=== PATIENT | male | born 1980 | race Caucasian/White ===

== ENCOUNTER 2018-12-02 13:21 | Inpatient (IN) | payer OTHER ==
[2018-12-02 14:58] VITALS: BMI 17.9
--- NOTE | 2018-12-02 16:46 | HP ---
CIWA Score Nausea/Vomitin-Mild Nausea/No Vomiting Muscle Tremors: 3 Anxiety: 3 Agitation: 2 Paroxysmal Sweats: 1-Minimal Palms Moist Orientation: 0-Oriented Tacttile Disturbances: 0-None Auditory Disturbances: 0-None Visual Disturbances: 0-None Headache: 2-Mild CIWA-Ar Total Score: 12 - Admission Criteria OASAS Guidelines: Admission for Medically Managed Detox: Requires at least one of the followin. CIWA greater than 12 2. Seizures within the past 24 hours 3. Delirium tremens within the past 24 hours 4. Hallucinations within the past 24 hours 5. Acute intervention needed for co occurring medical disorder 6. Acute intervention needed for co occurring psychiatric disorder 7. Severe withdrawal that cannot be handled at a lower level of care (continued vomiting, continued diarrhea, abnormal vital signs) requiring intravenous medication and/or fluids 8. Admission ROS S - [facility] Chief Complaint: here for detox from alcohol, on MAT methadone Allergies/Adverse Reactions: Allergies Allergy/AdvReac Type Severity Reaction Status Date / Time No Known Allergies Allergy Verified 12/02/18 14:47 History of Present Illness: 38 yo with no medical problems, in a methadone program in [place], referred here by program for detox. Pt states last drink was this morning. 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 Says he does not like drinking and would like to stop. Has not gone to AA groups or discussed treatment with his counselors. Lives with his parents. Has no PCP. alcohol- 6 beers/day and 1/2 pint of vodka, no seizures no DT's heroin- 2 bags/IV, no OD, has narcan kit at home cocaine- occ Benzo-occ DUR- no controlled substances - Ebola screening Have you traveled outside of the country in the last 21 days: No Have you had contact with anyone from an Ebola affected area: No Do you have a fever: No - Review of Systems Constitutional: No Symptoms Reported EENT: reports: No Symptoms Reported Respiratory: reports: No Symptoms reported Cardiac: reports: No Symptoms Reported GI: reports: No Symptoms Reported : reports: No Symptoms Reported Musculoskeletal: reports: No Symptoms Reported Integumentary: reports: No Symptoms Reported Neuro: reports: No Symptoms reported Endocrine: reports: No Symptoms Reported Hematology: reports: No Symptoms Reported Psychiatric: reports: No Sypmtoms Reported Other Systems: Reviewed and Negative Patient History - Patient Medical History Hx Human Immunodeficiency Virus (HIV): No Hx Hepatitis C: No - PPD History Documented Results: Negative w/o proof - Smoking Cessation Smoking history: Current every day smoker Have you smoked in the past 12 months: Yes Aproximately how many cigarettes per day: 10 Hx Chewing Tobacco Use: No Initiated information on smoking cessation: Yes 'Breaking Loose' booklet given: 12/02/18 - Substance & Tx. History Substance Use Type: Alcohol, Cocaine, Heroin - Substances abused Alcohol Substance route: Oral Frequency: Daily Amount used: 6 beers & 1 pint vodka Age of first use: 36 Date of last use: 12/02/18 Benzodiazepine (Klonopin) Substance route: Oral Frequency: 1-3 times last 30 days Amount used: 0.5mg Age of first use: 38 Date of last use: 11/30/18 Family Disease History - Family Disease History Family History: Denies Admission Physical Exam [facility] - Vital Signs Vital Signs: Vital Signs - 24 hr 12/02/18 14:47 Temperature 98.9 F Pulse Rate 75 Respiratory 16 Rate Blood Pressure 99/64 - Physical General Appearance: Yes: Within Normal Limits, Mild Distress, Thin HEENTM: Yes: Within Normal Limits, EOMI, Hearing grossly Normal, Normal ENT Inspection, GEETA Respiratory: Yes: Within Normal Limits, Chest Non-Tender, Lungs Clear Neck: Yes: Within Normal Limits Cardiology: Yes: Within Normal Limits, Regular Rhythm Abdominal: Yes: Within Normal Limits, Normal Bowel Sounds, Non Tender, Flat Genitourinary: Yes: Within Normal Limits Back: Yes: Within Normal Limits Musculoskeletal: Yes: Within Normal Limits Extremities: Yes: Within Normal Limits Neurological: Yes: Within Normal Limits Integumentary: Yes: Within Normal Limits Lymphatic: Yes: Within Normal Limits - Diagnostic (1) Alcohol use disorder Current Visit: Yes Status: Acute (2) Cocaine use disorder Current Visit: Yes Status: Acute (3) Methadone maintenance therapy patient Current Visit: Yes Status: Acute (4) Opioid use disorder Current Visit: Yes Status: Acute (5) Tobacco dependence Current Visit: Yes Status: Acute Breathalyzer - Breathalyzer Breathalyzer: 0 Urine Drug Screen - Test Device Lot number: [id number] Expiration date: 04/30/21 - Control Is test valid?: Yes - Results Drug screen NEGATIVE: No Urine drug screen results: GRISELDA-Cocaine, FEN-Fentanyl, MOP-Opiates, OXY-Oxycodone , MTD-Methadone Inpatient Rehab Admission - Rehab Decision to Admit Inpatient rehab admission?: No
[2018-12-02] MEDS ORDERED: hydrOXYzine PAMOATE 25 MG CAPSULE (FP) PO PRN (16:49)
[2018-12-02] MEDS ORDERED: ONDANSETRON *ODT* 4 MG TABLET SL PRN (16:49)
[2018-12-02] MEDS ORDERED: ACETAMINOPHEN 325 MG TABLET (FP) PO PRN ×2 (16:49)
[2018-12-02] MEDS ORDERED: MAGNESIUM CITRATE 300 ML BOTTLE PO PRN (16:49)
[2018-12-02] MEDS ORDERED: BISMUTH SUBSALICYLATE 524 MG/30 ML UD PO PRN (16:49)
[2018-12-02] MEDS ORDERED: MELATONIN 5 MG TABLETS PO PRN (16:49)
[2018-12-02] MEDS ORDERED: chlordiazePOXIDE HCL 25 MG CAPSULE PO PRN (16:49)
[2018-12-02] MEDS ORDERED: MENTHOL/PHENOL 1 EACH UD MM PRN (16:49)
[2018-12-02] MEDS ORDERED: METHOCARBAMOL 500 MG TABLET PO PRN (16:49)
[2018-12-02] MEDS ORDERED: MAGNESIUM HYDROX 2400MG/30ML ORAL SUSPENSION 30 ML CUP PO PRN (16:49)
[2018-12-02] MEDS ORDERED: IBUPROFEN 400 MG TABLET (FP) PO PRN (16:49)
--- NOTE | 2018-12-02 17:58 | PN ---
[facility] Progress Note Note: Patient EKG shoes prolonged QT interval. Will d/c vistaril.
[2018-12-02] MEDS: chlordiazePOXIDE HCL 25 MG CAPSULE PO SCH (22:20)
[2018-12-02] MEDS: THIAMINE HCL 100 MG TABLET (FP) PO SCH (22:20)
[2018-12-02] MEDS: MAG HYDROX/AL HYDROX/SIMETH 30 ML UNIT-DOSE CUP PO PRN (22:21)
[2018-12-03] MEDS: chlordiazePOXIDE HCL 25 MG CAPSULE PO SCH ×4 (05:10→23:34)
[2018-12-03] MEDS ORDERED: METHADONE HCL 10 MG TABLET PO ONE (09:42)
[2018-12-03 09:55] LABS: ALBUMIN 3.2 g/dl (3.4-5.0); BILIRUBIN,TOTAL 0.4 mg/dL (0.2-1); BLOOD UREA NITROGEN 9.7 mg/dL (7-18); CALCIUM 8.8 mg/dL (8.5-10.1); CREATININE 0.8 mg/dL (0.55-1.3); POTASSIUM 4.1 mmol/L (3.5-5.1); TOT PROT 6.5 g/dl (6.4-8.2)
[2018-12-03 10:06] LABS: HEMATOCRIT 37.9 % (35.4-49); HEMOGLOBIN 12.7 GM/dL (11.7-16.9); MCH 29.3 pg (25.7-33.7); MCHC 33.5 g/dl (32.0-35.9); MEAN CELL VOLUME 87.4 fl (80-96); MEAN PLT VOLUME 9.6 fl (7.5-11.1); PLATELET COUNT 140 K/MM3 (134-434); RBC 4.33 M/mm3 (4.00-5.60); RDW 13.4 % (11.9-15.9); WHITE BLOOD COUNT 4.1 K/mm3 (4.0-10.0)
[2018-12-03] MEDS ORDERED: METHADONE 80 MG, METHADONE 30 MG, METHADONE 5 MG PO ONE (10:30)
[2018-12-03] MEDS ORDERED: METHADONE HCL 5 MG TABLET ONE (10:35)
[2018-12-03] MEDS ORDERED: METHADONE HCL 10 MG TABLET ONE (10:35)
[2018-12-03] MEDS: PRENATAL VITAMINS W/ FOLIC ACID TABLET (FP) PO SCH (10:36)
[2018-12-03] MEDS ORDERED: METHADONE HCL 40 MG DISPERSABLE TABLET ONE (10:36)
[2018-12-03] MEDS: NICOTINE 14 MG/24 HOURS TOPICAL PATCH TD SCH (10:37)
--- NOTE | 2018-12-03 13:04 | PN ---
[facility] CIWA - CIWA Score Nausea/Vomitin-No Nausea/No Vomiting Muscle Tremors: 3 Anxiety: 3 Agitation: 3 Paroxysmal Sweats: 2 Orientation: 0-Oriented Tacttile Disturbances: 0-None Auditory Disturbances: 0-None Visual Disturbances: 0-None Headache: 0-None Present CIWA-Ar Total Score: 11 S Progress Note (SOAP) Subjective: nausea restless sweats shakes Objective: 12/03/18 13:03 Vital Signs Temperature 98.2 F 12/03/18 09:32 Pulse Rate 82 12/03/18 09:32 Respiratory Rate 18 12/03/18 09:32 Blood Pressure 102/58 L 12/03/18 09:32 O2 Sat by Pulse Oximetry (%) Laboratory Tests 12/03/18 12/03/18 12/03/18 08:00 08:00 08:00 WBC 4.1 RBC 4.33 Hgb 12.7 Hct 37.9 MCV 87.4 MCH 29.3 MCHC 33.5 RDW 13.4 Plt Count 140 MPV 9.6 Sodium 142 Potassium 4.1 Chloride 106 Carbon Dioxide 32 Anion Gap 4 L BUN 9.7 Creatinine 0.8 Est GFR (CKD-EPI)AfAm 132.27 Est GFR (CKD-EPI)NonAf 114.12 Random Glucose 83 Calcium 8.8 Total Bilirubin 0.4 AST 39 H ALT 55 Alkaline Phosphatase 62 Total Protein 6.5 Albumin 3.2 L RPR Titer Nonreactive labs noted aaox3 ambulating no acute distress Assessment: 12/03/18 13:03 withdrawal sx Plan: continue detox increase fluids zofran sl prn
--- NOTE | 2018-12-03 15:22 | EKG ---
Test Reason : Blood Pressure : / mmHG Vent. Rate : 060 BPM Atrial Rate : 060 BPM P-R Int : 148 ms QRS Dur : 100 ms QT Int : 482 ms P-R-T Axes : -16 071 073 degrees QTc Int : 482 ms NORMAL SINUS RHYTHM WITH SINUS ARRHYTHMIA PROLONGED QT ABNORMAL ECG NO PREVIOUS ECGS AVAILABLE Confirmed by MD Edson, Trey ([id number]) on 12/03/2018 3:21:39 PM Referred By: AMANDA RILEY Confirmed By:Trey Sandhu MD
[2018-12-03] MEDS: ONDANSETRON *ODT* 4 MG TABLET SL PRN (15:46)
[2018-12-03] MEDS: MAG HYDROX/AL HYDROX/SIMETH 30 ML UNIT-DOSE CUP PO PRN (22:26)
[2018-12-03] MEDS: THIAMINE HCL 100 MG TABLET (FP) PO SCH (23:33)
[2018-12-04] MEDS ORDERED: METHADONE HCL 10 MG TABLET ONE (05:10)
[2018-12-04] MEDS ORDERED: METHADONE HCL 5 MG TABLET ONE (05:11)
[2018-12-04] MEDS ORDERED: METHADONE HCL 40 MG DISPERSABLE TABLET ONE (05:11)
[2018-12-04] MEDS: ONDANSETRON *ODT* 4 MG TABLET SL PRN ×2 (05:41→20:46)
[2018-12-04] MEDS: METHADONE 80 MG, METHADONE 30 MG, METHADONE 5 MG PO SCH (05:42)
[2018-12-04] MEDS: chlordiazePOXIDE HCL 25 MG CAPSULE PO SCH ×4 (05:43→22:27)
[2018-12-04] MEDS ORDERED: METHADONE HCL 40 MG DISPERSABLE TABLET PO SCH (06:00)
[2018-12-04] MEDS: NICOTINE 14 MG/24 HOURS TOPICAL PATCH TD SCH (10:48)
[2018-12-04] MEDS: PRENATAL VITAMINS W/ FOLIC ACID TABLET (FP) PO SCH (10:48)
[2018-12-04] MEDS ORDERED: COLLOIDAL OATMEAL 1 BAR EACH TP PRN (13:40)
[2018-12-04] MEDS ORDERED: hydrOXYzine HCL 25 MG TABLET (FP) PO PRN (13:40)
[2018-12-04] MEDS ORDERED: AMMONIUM LACTATE 12% LOTION 225 GM BOTTLE TP PRN (13:41)
--- NOTE | 2018-12-04 16:05 | PN ---
[facility] CIWA - CIWA Score Nausea/Vomitin-Mild Nausea/No Vomiting Muscle Tremors: 3 Anxiety: 3 Agitation: 3 Paroxysmal Sweats: 3 Orientation: 0-Oriented Tacttile Disturbances: 0-None Auditory Disturbances: 0-None Visual Disturbances: 0-None Headache: 0-None Present CIWA-Ar Total Score: 13 S Progress Note (SOAP) Subjective: Stomachache, interrupted sleep, itching upper trunk and extremities (no rash noted) stated he's probably allergic to the bed linens or laundry detergent that washes bed linens. Patient informed that crack/cocaine can also cause itching/crawling sensation and he admitted to using crack sometimes but not recently. Objective: 12/04/18 16:02 Last Vital Signs Temp Pulse Resp BP Pulse Ox 97.1 F L 69 16 107/56 L 12/04/18 13:37 12/04/18 13:37 12/04/18 13:37 12/04/18 13:37 Laboratory Tests 12/03/18 12/03/18 12/03/18 08:00 08:00 08:00 WBC 4.1 RBC 4.33 Hgb 12.7 Hct 37.9 MCV 87.4 MCH 29.3 MCHC 33.5 RDW 13.4 Plt Count 140 MPV 9.6 Sodium 142 Potassium 4.1 Chloride 106 Carbon Dioxide 32 Anion Gap 4 L BUN 9.7 Creatinine 0.8 Est GFR (CKD-EPI)AfAm 132.27 Est GFR (CKD-EPI)NonAf 114.12 Random Glucose 83 Calcium 8.8 Total Bilirubin 0.4 AST 39 H ALT 55 Alkaline Phosphatase 62 Total Protein 6.5 Albumin 3.2 L RPR Titer Nonreactive Labs reviewed: albumin 3.2 (low) Assessment: 12/04/18 16:02 Withdrawal sxs Noted with hypoalbuminemia Plan: Continue detox Encouraged PO water intake Hypoalbuminemia: ensure TID Pruritis: hydroxyzine 50mg PO q6hr prn (changed to benadryl PO prn due to prolonged QTc as per chart), aveeno soap daily prn, lac hydrin lotion bid
[2018-12-04] MEDS ORDERED: diphenhydrAMINE HCL 25 MG CAPSULE (FP) PO PRN (20:00)
[2018-12-04] MEDS: MAG HYDROX/AL HYDROX/SIMETH 30 ML UNIT-DOSE CUP PO PRN (22:29)
[2018-12-04] MEDS: THIAMINE HCL 100 MG TABLET (FP) PO SCH (22:51)
[2018-12-05] MEDS ORDERED: chlordiazePOXIDE HCL 10 MG CAPSULE PO PRN
[2018-12-05] MEDS: chlordiazePOXIDE HCL 10 MG CAPSULE PO SCH ×4 (05:24→22:13)
[2018-12-05] MEDS ORDERED: METHADONE HCL 5 MG TABLET ONE (05:25)
[2018-12-05] MEDS ORDERED: METHADONE HCL 40 MG DISPERSABLE TABLET ONE (05:26)
[2018-12-05] MEDS ORDERED: METHADONE HCL 10 MG TABLET ONE (05:26)
[2018-12-05] MEDS: METHADONE 80 MG, METHADONE 30 MG, METHADONE 5 MG PO SCH (05:27)
[2018-12-05] MEDS: NICOTINE 14 MG/24 HOURS TOPICAL PATCH TD SCH (10:05)
[2018-12-05] MEDS: PRENATAL VITAMINS W/ FOLIC ACID TABLET (FP) PO SCH (10:06)
--- NOTE | 2018-12-05 10:09 | PN ---
[facility] CIWA - CIWA Score Nausea/Vomitin-No Nausea/No Vomiting Muscle Tremors: 2 Anxiety: 2 Agitation: 3 Paroxysmal Sweats: 2 Orientation: 0-Oriented Tacttile Disturbances: 0-None Auditory Disturbances: 0-None Visual Disturbances: 0-None Headache: 0-None Present CIWA-Ar Total Score: 9 S Progress Note (SOAP) Subjective: sweats agitation restless Objective: 12/05/18 10:09 Vital Signs Temperature 98.6 F 12/05/18 09:36 Pulse Rate 66 12/05/18 09:36 Respiratory Rate 18 12/05/18 09:36 Blood Pressure 115/62 12/05/18 09:36 O2 Sat by Pulse Oximetry (%) aaox3 ambulating no acute distress Assessment: 12/05/18 10:09 withdrawal sx Plan: continue detox increase fluids
[2018-12-05] MEDS: MAG HYDROX/AL HYDROX/SIMETH 30 ML UNIT-DOSE CUP PO PRN ×2 (10:31→16:46)
[2018-12-05] MEDS: ONDANSETRON *ODT* 4 MG TABLET SL PRN (17:50)
[2018-12-05] MEDS: THIAMINE HCL 100 MG TABLET (FP) PO SCH (22:13)
[2018-12-06] MEDS ORDERED: METHADONE HCL 40 MG DISPERSABLE TABLET ONE (04:33)
[2018-12-06] MEDS ORDERED: METHADONE HCL 5 MG TABLET ONE (04:33)
[2018-12-06] MEDS ORDERED: METHADONE HCL 10 MG TABLET ONE (04:33)
[2018-12-06] MEDS: METHADONE 80 MG, METHADONE 30 MG, METHADONE 5 MG PO SCH (05:56)
[2018-12-06] MEDS: chlordiazePOXIDE HCL 10 MG CAPSULE PO SCH ×2 (05:58→17:37)
[2018-12-06] MEDS: MAG HYDROX/AL HYDROX/SIMETH 30 ML UNIT-DOSE CUP PO PRN ×3 (07:10→22:12)
[2018-12-06] MEDS ORDERED: chlordiazePOXIDE HCL 10 MG CAPSULE PO ONE (09:29)
[2018-12-06] MEDS: NICOTINE 14 MG/24 HOURS TOPICAL PATCH TD SCH (10:55)
[2018-12-06] MEDS: PRENATAL VITAMINS W/ FOLIC ACID TABLET (FP) PO SCH (10:57)
--- NOTE | 2018-12-06 11:03 | PN ---
[facility] CIWA - CIWA Score Nausea/Vomitin-No Nausea/No Vomiting Muscle Tremors: 1-None Visible, but [place] Anxiety: 1-Mildly Anxious Agitation: 0-Normal Activity Paroxysmal Sweats: 1-Minimal Palms Moist Orientation: 0-Oriented Tacttile Disturbances: 0-None Auditory Disturbances: 0-None Visual Disturbances: 0-None Headache: 0-None Present CIWA-Ar Total Score: 3 [facility] Progress Note (SOAP) Subjective: sweats anxiety Objective: 12/06/18 11:02 Vital Signs Temperature 96.9 F L 12/06/18 09:35 Pulse Rate 70 12/06/18 09:35 Respiratory Rate 18 12/06/18 09:35 Blood Pressure 101/56 L 12/06/18 09:35 O2 Sat by Pulse Oximetry (%) aaox3 ambulating no acute distress Assessment: 12/06/18 11:02 withdrawal sx Plan: continue detox increase fluids d/c in am
[2018-12-06] MEDS: THIAMINE HCL 100 MG TABLET (FP) PO SCH (22:11)
[2018-12-07] MEDS ORDERED: METHADONE HCL 5 MG TABLET ONE (04:33)
[2018-12-07] MEDS ORDERED: METHADONE HCL 40 MG DISPERSABLE TABLET ONE (04:33)
[2018-12-07] MEDS ORDERED: METHADONE HCL 10 MG TABLET ONE (04:33)
[2018-12-07] MEDS ORDERED: chlordiazePOXIDE HCL 10 MG CAPSULE PO ONE (05:00)
[2018-12-07] MEDS: METHADONE 80 MG, METHADONE 30 MG, METHADONE 5 MG PO SCH (05:58)
[2018-12-07 09:36] VITALS: BP 113/64; PULSE 65; TEMP 98
[2018-12-07] MEDS: NICOTINE 14 MG/24 HOURS TOPICAL PATCH TD SCH (10:06)
[2018-12-07] MEDS: PRENATAL VITAMINS W/ FOLIC ACID TABLET (FP) PO SCH (10:06)
[2018-12-07] MEDS: MAG HYDROX/AL HYDROX/SIMETH 30 ML UNIT-DOSE CUP PO PRN (10:07)
--- NOTE | 2018-12-07 11:00 | DS ---
[facility] Detox Discharge Summary Admission Date: 12/02/18 Discharge Date: 12/07/18 - History Present History: Alcohol Dependence, Cocaine Dependence, Opioid Dependence Additional Comments: Pt is medically cleared and is discharge today. Pt has completed his detox protocol and is [facility] [place] [facility] management. Pt is alert and oriented x3 and in no respiratory distress. Pertinent Past History: h/o alcohol, cocaine, and opioid use disorder. - Physical Exam Results Vital Signs: Vital Signs Temperature 98.0 F 12/07/18 09:35 Pulse Rate 65 12/07/18 09:35 Respiratory Rate 18 12/07/18 09:35 Blood Pressure 113/64 12/07/18 09:35 O2 Sat by Pulse Oximetry (%) Vital Signs 12/07/18 12/07/18 12/07/18 03:30 07:27 09:35 Temperature 97.9 F 98.0 F Pulse Rate 78 65 Respiratory 18 18 18 Rate Blood Pressure 94/60 113/64 Lab Results WBC 4.1 K/mm3 (4.0-10.0) 12/03/18 08:00 RBC 4.33 M/mm3 (4.00-5.60) 12/03/18 08:00 Hgb 12.7 GM/dL (11.7-16.9) 12/03/18 08:00 Hct 37.9 % (35.4-49) 12/03/18 08:00 MCV 87.4 fl (80-96) 12/03/18 08:00 MCHC 33.5 g/dl (32.0-35.9) 12/03/18 08:00 RDW 13.4 % (11.9-15.9) 12/03/18 08:00 Plt Count 140 K/MM3 (134-434) 12/03/18 08:00 Sodium 142 mmol/L (136-145) 12/03/18 08:00 Potassium 4.1 mmol/L (3.5-5.1) 12/03/18 08:00 Chloride 106 mmol/L (98-107) 12/03/18 08:00 Carbon Dioxide 32 mmol/L (21-32) 12/03/18 08:00 Anion Gap 4 MMOL/L (8-16) L 12/03/18 08:00 BUN 9.7 mg/dL (7-18) 12/03/18 08:00 Creatinine 0.8 mg/dL (0.55-1.3) 12/03/18 08:00 Random Glucose 83 mg/dL (74-106) 12/03/18 08:00 Calcium 8.8 mg/dL (8.5-10.1) 12/03/18 08:00 Labs noted. Pertinent Admission Physical Exam Findings: withdrawal symptoms. - Treatment Hospital Course: Detox Protocol Followed, Detoxed Safely, Responded well, Discharged Condition Good, Rehab Referral Accepted Patient has Accepted a [facility] - Medication Discharge Medications: Ambulatory Orders Methadone [Dolophine -] 115 mg PO DAILY 12/07/18 - Diagnosis (1) Alcohol use disorder Current Visit: Yes Status: Acute (2) Cocaine use disorder Current Visit: Yes Status: Acute (3) Methadone maintenance therapy patient Current Visit: Yes Status: Acute (4) Opioid use disorder Current Visit: Yes Status: Acute (5) Tobacco dependence Current Visit: Yes Status: Acute - AMA Did Patient Leave Against Medical Advice: No
[2018-12-08] MEDS ORDERED: BISMUTH SUBSALICYLATE 262 MG/15 ML BTL PO PRN (09:42)
== END 2018-12-07 13:06 | disposition other institution (70) | DRG 773 ==
LOC: YASAS 13:21 → Y6N 17:13
PROVIDERS: ADMIT Surgery; ATTEND Surgery
PROC: HZ2ZZZZ Detoxification Services for Substance Abuse Treatment (ICD-10-PCS; principal; 2018-12-02)
DX: F10.230 Alcohol dependence with withdrawal, uncomplicated (principal); F11.20 Opioid dependence, uncomplicated; F14.20 Cocaine dependence, uncomplicated; F17.210 Nicotine dependence, cigarettes, uncomplicated; I45.81 Long QT syndrome; R77.0 Abnormality of albumin
CPT/HCPCS: 36415; 80053; 85027; 86480; 86593; 93005; 93010; Q0162

== ENCOUNTER 2018-12-07 13:26 | Inpatient (IN) | payer OTHER ==
[2018-12-07] MEDS: MAG HYDROX/AL HYDROX/SIMETH 30 ML UNIT-DOSE CUP PO PRN (14:00)
[2018-12-07] MEDS ORDERED: MENTHOL/PHENOL 1 EACH UD MM PRN (14:23)
[2018-12-07] MEDS ORDERED: LOPERAMIDE HCL 2 MG CAPSULE PO PRN (14:23)
[2018-12-07] MEDS ORDERED: guaiFENesin 200 MG/10 ML 10 ML UNIT-DOSE CUPS PO PRN (14:23)
[2018-12-07] MEDS ORDERED: IBUPROFEN 400 MG TABLET (FP) PO PRN (14:23)
[2018-12-07] MEDS ORDERED: MAGNESIUM CITRATE 300 ML BOTTLE PO PRN (14:23)
[2018-12-07] MEDS ORDERED: P-EPHED 60MG/TRIPROLIDI 2.5MG TABLET PO PRN (14:23)
[2018-12-07] MEDS ORDERED: MAGNESIUM HYDROX 2400MG/30ML ORAL SUSPENSION 30 ML CUP PO PRN (14:23)
--- NOTE | 2018-12-07 14:23 | HP ---
[facility] Rehab Assess/Revision - Admission History Admitted to Rehab from: [facility] Date of Admission to Rehab: 12/07/18 - Vital signs Vital Signs: Vital Signs Period Temp Pulse Resp BP Sys/[place] Pulse Ox Last 24 Hr 97.4 F 69 16 85/57 Vital Signs (72 hours) 12/07/18 13:49 Temperature 97.4 F L Pulse Rate 69 Respiratory 16 Rate Blood Pressure 85/57 L - Findings Detox History & Physical reviewed: Yes Concur with findings: Yes Inpatient Rehab Admission - Rehab Decision to Admit Inpatient rehab admission?: Yes - Initial Determination Are CD services needed?: Yes Free of communicable disease: Yes Not in need of hospitalization: Yes - Rehab Admission Criteria Previous failed treatment: Yes Poor recovery environment: Yes Comorbidities: Yes Lacks judgement: No Patient is meeting Inpatient Rehab admission criteria:: Yes
[2018-12-07] MEDS ORDERED: COLLOIDAL OATMEAL 1 BAR EACH TP PRN (14:25)
[2018-12-07] MEDS ORDERED: diphenhydrAMINE HCL 25 MG CAPSULE (FP) PO PRN (14:26)
[2018-12-07] MEDS ORDERED: ONDANSETRON *ODT* 4 MG TABLET SL PRN (14:27)
[2018-12-07] MEDS ORDERED: AMMONIUM LACTATE 12% LOTION 225 GM BOTTLE TP PRN (14:28)
[2018-12-07] MEDS: THIAMINE HCL 100 MG TABLET (FP) PO SCH (22:03)
[2018-12-07] MEDS: MELATONIN 5 MG TABLETS PO PRN (22:03)
[2018-12-08] MEDS ORDERED: METHADONE HCL 5 MG TABLET ONE (05:54)
[2018-12-08] MEDS ORDERED: METHADONE HCL 10 MG TABLET ONE (05:55)
[2018-12-08] MEDS ORDERED: METHADONE HCL 40 MG DISPERSABLE TABLET ONE (05:55)
[2018-12-08] MEDS ORDERED: METHADONE HCL 40 MG DISPERSABLE TABLET PO SCH (06:00)
[2018-12-08] MEDS: METHADONE 80 MG, METHADONE 30 MG, METHADONE 5 MG PO SCH (06:12)
[2018-12-08] MEDS: MAG HYDROX/AL HYDROX/SIMETH 30 ML UNIT-DOSE CUP PO PRN (09:15)
--- NOTE | 2018-12-08 09:51 | PN ---
S Progress Note Note: New pt admitted from [address] [place] [address] on 12/07/18. Pt c/o abdominal cramp/gas. Reports mylanta not effective. Vital Signs 12/08/18 12/08/18 03:30 07:25 Temperature 98.2 F Pulse Rate 64 Respiratory 19 18 Rate Blood Pressure 87/59 L Limited Exam: Abdomen:Soft,+bs,nd,nd A/P: Indigestion R/o Acid reflux Pepto bismol if not effective, give protonix 40 mg po daily.
[2018-12-08] MEDS: PRENATAL VITAMINS W/ FOLIC ACID TABLET (FP) PO SCH (10:29)
[2018-12-08] MEDS: NICOTINE 14 MG/24 HOURS TOPICAL PATCH TD SCH (10:29)
[2018-12-08] MEDS: ACETAMINOPHEN 325 MG TABLET (FP) PO PRN (10:30)
[2018-12-08] MEDS: BISMUTH SUBSALICYLATE 262 MG/15 ML BTL PO PRN ×2 (14:10→21:49)
[2018-12-08] MEDS: MELATONIN 5 MG TABLETS PO PRN (21:49)
[2018-12-08] MEDS: THIAMINE HCL 100 MG TABLET (FP) PO SCH (21:49)
[2018-12-09] MEDS ORDERED: METHADONE HCL 5 MG TABLET ONE (06:32)
[2018-12-09] MEDS ORDERED: METHADONE HCL 40 MG DISPERSABLE TABLET ONE (06:32)
[2018-12-09] MEDS: METHADONE 80 MG, METHADONE 30 MG, METHADONE 5 MG PO SCH (06:32)
[2018-12-09] MEDS ORDERED: METHADONE HCL 10 MG TABLET ONE (06:32)
[2018-12-09] MEDS: BISMUTH SUBSALICYLATE 262 MG/15 ML BTL PO PRN ×2 (10:50→21:43)
[2018-12-09] MEDS: PRENATAL VITAMINS W/ FOLIC ACID TABLET (FP) PO SCH (10:50)
[2018-12-09] MEDS: NICOTINE 14 MG/24 HOURS TOPICAL PATCH TD SCH (10:51)
--- NOTE | 2018-12-09 14:02 | PN ---
[facility] Progress Note Note: Pt c/o burning sensation when burped with acidic regurgitation. Vital Signs - 24 hr 12/09/18 12/09/18 12/09/18 00:30 03:30 07:44 Temperature 97.8 F Pulse Rate 59 L Respiratory 18 18 18 Rate Blood Pressure 103/58 L A/P: GERD Start protonix 40 mg po daily
[2018-12-09] MEDS: PANTOPRAZOLE 40 MG TABLET (FP) PO SCH (14:15)
[2018-12-09] MEDS: ACETAMINOPHEN 325 MG TABLET (FP) PO PRN (15:41)
[2018-12-09] MEDS: MELATONIN 5 MG TABLETS PO PRN (21:43)
[2018-12-09] MEDS: THIAMINE HCL 100 MG TABLET (FP) PO SCH (21:44)
[2018-12-10] MEDS ORDERED: METHADONE HCL 10 MG TABLET ONE (06:12)
[2018-12-10] MEDS ORDERED: METHADONE HCL 5 MG TABLET ONE (06:12)
[2018-12-10] MEDS: METHADONE 80 MG, METHADONE 30 MG, METHADONE 5 MG PO SCH (06:13)
[2018-12-10] MEDS ORDERED: METHADONE HCL 40 MG DISPERSABLE TABLET ONE (06:13)
[2018-12-10] MEDS: NICOTINE 14 MG/24 HOURS TOPICAL PATCH TD SCH (09:37)
[2018-12-10] MEDS: PANTOPRAZOLE 40 MG TABLET (FP) PO SCH (09:37)
[2018-12-10] MEDS: PRENATAL VITAMINS W/ FOLIC ACID TABLET (FP) PO SCH (09:37)
[2018-12-10] MEDS: BISMUTH SUBSALICYLATE 262 MG/15 ML BTL PO PRN ×2 (09:38→22:23)
[2018-12-10] MEDS: ACETAMINOPHEN 325 MG TABLET (FP) PO PRN (19:47)
[2018-12-10] MEDS: MAG HYDROX/AL HYDROX/SIMETH 30 ML UNIT-DOSE CUP PO PRN (19:47)
[2018-12-10] MEDS: MELATONIN 5 MG TABLETS PO PRN (22:15)
[2018-12-10] MEDS: THIAMINE HCL 100 MG TABLET (FP) PO SCH (22:15)
[2018-12-11] MEDS ORDERED: METHADONE HCL 5 MG TABLET ONE (04:02)
[2018-12-11] MEDS ORDERED: METHADONE HCL 10 MG TABLET ONE (04:03)
[2018-12-11] MEDS ORDERED: METHADONE HCL 40 MG DISPERSABLE TABLET ONE (04:03)
[2018-12-11] MEDS: METHADONE 80 MG, METHADONE 30 MG, METHADONE 5 MG PO SCH (05:57)
[2018-12-11 10:33] LABS: PH,URINE 6.5 (5.0-8.0); URINE APPEARANCE Clear; URINE BILIRUBIN Negative (NEGATIVE); URINE COLOR Yellow; URINE GLUCOSE (UA) Negative (NEGATIVE); URINE KETONE Trace (NEGATIVE); URINE LEUK ESTERASE Negative (NEGATIVE); URINE NITRITE Negative (NEGATIVE); URINE PROTEIN Negative (NEGATIVE); URINE UROBILINOGEN 0.2 mg/dL (0.2-1.0)
[2018-12-11] MEDS: NICOTINE 14 MG/24 HOURS TOPICAL PATCH TD SCH (12:28)
[2018-12-11] MEDS: PRENATAL VITAMINS W/ FOLIC ACID TABLET (FP) PO SCH (12:28)
[2018-12-11] MEDS: PANTOPRAZOLE 40 MG TABLET (FP) PO SCH (12:28)
[2018-12-11] MEDS: BISMUTH SUBSALICYLATE 262 MG/15 ML BTL PO PRN (19:13)
[2018-12-11] MEDS: MELATONIN 5 MG TABLETS PO PRN (22:31)
[2018-12-11] MEDS: THIAMINE HCL 100 MG TABLET (FP) PO SCH (22:31)
[2018-12-11] MEDS: ACETAMINOPHEN 325 MG TABLET (FP) PO PRN (23:21)
[2018-12-12] MEDS ORDERED: METHADONE HCL 10 MG TABLET ONE (05:51)
[2018-12-12] MEDS ORDERED: METHADONE HCL 5 MG TABLET ONE (05:51)
[2018-12-12] MEDS ORDERED: METHADONE HCL 40 MG DISPERSABLE TABLET ONE (05:52)
[2018-12-12] MEDS: METHADONE 80 MG, METHADONE 30 MG, METHADONE 5 MG PO SCH (06:00)
[2018-12-12] MEDS: PRENATAL VITAMINS W/ FOLIC ACID TABLET (FP) PO SCH (11:02)
[2018-12-12] MEDS: NICOTINE 14 MG/24 HOURS TOPICAL PATCH TD SCH (11:02)
[2018-12-12] MEDS: PANTOPRAZOLE 40 MG TABLET (FP) PO SCH (11:02)
[2018-12-12] MEDS: BISMUTH SUBSALICYLATE 262 MG/15 ML BTL PO PRN (11:03)
[2018-12-12] MEDS: MAG HYDROX/AL HYDROX/SIMETH 30 ML UNIT-DOSE CUP PO PRN (17:44)
[2018-12-12] MEDS: MELATONIN 5 MG TABLETS PO PRN (21:59)
[2018-12-12] MEDS: THIAMINE HCL 100 MG TABLET (FP) PO SCH (21:59)
[2018-12-13] MEDS ORDERED: METHADONE HCL 5 MG TABLET ONE (03:59)
[2018-12-13] MEDS ORDERED: METHADONE HCL 10 MG TABLET ONE (04:00)
[2018-12-13] MEDS ORDERED: METHADONE HCL 40 MG DISPERSABLE TABLET ONE (04:00)
[2018-12-13] MEDS: METHADONE 80 MG, METHADONE 30 MG, METHADONE 5 MG PO SCH (06:06)
[2018-12-13] MEDS: PRENATAL VITAMINS W/ FOLIC ACID TABLET (FP) PO SCH (11:05)
[2018-12-13] MEDS: NICOTINE 14 MG/24 HOURS TOPICAL PATCH TD SCH (11:05)
[2018-12-13] MEDS: PANTOPRAZOLE 40 MG TABLET (FP) PO SCH (11:05)
--- NOTE | 2018-12-13 11:30 | PN ---
[facility] Progress Note Note: late entry: C/o frequent urination on 12/09/18. Pt instructed to keep log of urination over the weekend and ua was ordered. Pt c/o frequent urination every 1-3 hrs but denied any other symptoms of pain, burning,itching or discharge. Pt reports frequent urination x 2 years or more on/off and that he went to the doctor to check up and Ultrasound and tests were done and told everything showed normal. Pt reports "I notice the more clean time I have, the less I pee". Pt states he will follow up with primary care/urology after rehab treatment since he now has his medical insurance reinstated. Vital Signs - 24 hr 12/13/18 12/13/18 12/13/18 00:30 03:30 06:40 Temperature 98 F Pulse Rate 64 Respiratory 18 18 18 Rate Blood Pressure 98/55 L Laboratory Tests 12/11/18 09:00 Urine Color Yellow Urine Appearance Clear Urine pH 6.5 Ur Specific [place] 1.020 Urine Protein Negative Urine Glucose (UA) Negative Urine Ketones Trace Urine Blood Negative Urine Nitrite Negative Urine Bilirubin Negative Urine Urobilinogen 0.2 Ur Leukocyte Esterase Negative A/P UA wnl Asymptomatic D/w pt to report any imminent acute symptoms to staff D/w to follow up with primary care/urology if symptoms continue. Pt agreeable to poc.
[2018-12-13] MEDS: THIAMINE HCL 100 MG TABLET (FP) PO SCH (21:47)
[2018-12-13] MEDS: MELATONIN 5 MG TABLETS PO PRN (21:47)
[2018-12-14] MEDS ORDERED: METHADONE HCL 10 MG TABLET PO SCH (06:30)
[2018-12-14] MEDS ORDERED: METHADONE HCL 5 MG TABLET ONE (06:39)
[2018-12-14] MEDS ORDERED: METHADONE HCL 10 MG TABLET ONE (06:40)
[2018-12-14] MEDS ORDERED: METHADONE HCL 40 MG DISPERSABLE TABLET ONE (06:40)
[2018-12-14] MEDS: METHADONE 80 MG, METHADONE 30 MG, METHADONE 5 MG PO SCH (06:46)
[2018-12-14] MEDS: PANTOPRAZOLE 40 MG TABLET (FP) PO SCH (10:38)
[2018-12-14] MEDS: NICOTINE 14 MG/24 HOURS TOPICAL PATCH TD SCH (10:38)
[2018-12-14] MEDS: PRENATAL VITAMINS W/ FOLIC ACID TABLET (FP) PO SCH (10:38)
[2018-12-14] MEDS: MELATONIN 5 MG TABLETS PO PRN (21:48)
[2018-12-14] MEDS: THIAMINE HCL 100 MG TABLET (FP) PO SCH (21:49)
[2018-12-15] MEDS ORDERED: METHADONE HCL 10 MG TABLET ONE (04:17)
[2018-12-15] MEDS ORDERED: METHADONE HCL 5 MG TABLET ONE (04:17)
[2018-12-15] MEDS ORDERED: METHADONE HCL 40 MG DISPERSABLE TABLET ONE (04:17)
[2018-12-15] MEDS: METHADONE 80 MG, METHADONE 30 MG, METHADONE 5 MG PO SCH (06:03)
[2018-12-15] MEDS: PANTOPRAZOLE 40 MG TABLET (FP) PO SCH (10:55)
[2018-12-15] MEDS: NICOTINE 14 MG/24 HOURS TOPICAL PATCH TD SCH (10:55)
[2018-12-15] MEDS: PRENATAL VITAMINS W/ FOLIC ACID TABLET (FP) PO SCH (10:55)
[2018-12-15] MEDS: THIAMINE HCL 100 MG TABLET (FP) PO SCH (21:41)
[2018-12-15] MEDS: MELATONIN 5 MG TABLETS PO PRN (21:41)
[2018-12-16] MEDS ORDERED: METHADONE HCL 5 MG TABLET ONE (06:03)
[2018-12-16] MEDS ORDERED: METHADONE HCL 40 MG DISPERSABLE TABLET ONE (06:04)
[2018-12-16] MEDS ORDERED: METHADONE HCL 10 MG TABLET ONE (06:04)
[2018-12-16] MEDS: METHADONE 80 MG, METHADONE 30 MG, METHADONE 5 MG PO SCH (06:06)
[2018-12-16] MEDS: PRENATAL VITAMINS W/ FOLIC ACID TABLET (FP) PO SCH (11:02)
[2018-12-16] MEDS: NICOTINE 14 MG/24 HOURS TOPICAL PATCH TD SCH (11:02)
[2018-12-16] MEDS: PANTOPRAZOLE 40 MG TABLET (FP) PO SCH (11:03)
[2018-12-16] MEDS: MAG HYDROX/AL HYDROX/SIMETH 30 ML UNIT-DOSE CUP PO PRN (16:54)
[2018-12-16] MEDS: THIAMINE HCL 100 MG TABLET (FP) PO SCH (21:15)
[2018-12-16] MEDS: MELATONIN 5 MG TABLETS PO PRN (21:15)
[2018-12-17] MEDS ORDERED: METHADONE HCL 5 MG TABLET ONE (05:56)
[2018-12-17] MEDS ORDERED: METHADONE HCL 40 MG DISPERSABLE TABLET ONE (05:57)
[2018-12-17] MEDS ORDERED: METHADONE HCL 10 MG TABLET ONE (05:57)
[2018-12-17] MEDS: METHADONE 80 MG, METHADONE 30 MG, METHADONE 5 MG PO SCH (05:59)
[2018-12-17] MEDS: PRENATAL VITAMINS W/ FOLIC ACID TABLET (FP) PO SCH (09:05)
[2018-12-17] MEDS: NICOTINE 14 MG/24 HOURS TOPICAL PATCH TD SCH (09:05)
[2018-12-17] MEDS: PANTOPRAZOLE 40 MG TABLET (FP) PO SCH (09:05)
[2018-12-17] MEDS: MELATONIN 5 MG TABLETS PO PRN (21:53)
[2018-12-17] MEDS: THIAMINE HCL 100 MG TABLET (FP) PO SCH (21:54)
[2018-12-18] MEDS ORDERED: METHADONE HCL 5 MG TABLET ONE (06:02)
[2018-12-18] MEDS ORDERED: METHADONE HCL 10 MG TABLET ONE (06:03)
[2018-12-18] MEDS ORDERED: METHADONE HCL 40 MG DISPERSABLE TABLET ONE (06:03)
[2018-12-18] MEDS: METHADONE 80 MG, METHADONE 30 MG, METHADONE 5 MG PO SCH (06:06)
[2018-12-18] MEDS: NICOTINE 14 MG/24 HOURS TOPICAL PATCH TD SCH (10:13)
[2018-12-18] MEDS: PANTOPRAZOLE 40 MG TABLET (FP) PO SCH (10:13)
[2018-12-18] MEDS: PRENATAL VITAMINS W/ FOLIC ACID TABLET (FP) PO SCH (10:13)
[2018-12-18] MEDS: THIAMINE HCL 100 MG TABLET (FP) PO SCH (21:38)
[2018-12-18] MEDS: MELATONIN 5 MG TABLETS PO PRN (21:38)
[2018-12-19] MEDS ORDERED: METHADONE HCL 5 MG TABLET ONE (05:50)
[2018-12-19] MEDS ORDERED: METHADONE HCL 10 MG TABLET ONE (05:51)
[2018-12-19] MEDS ORDERED: METHADONE HCL 40 MG DISPERSABLE TABLET ONE (05:51)
[2018-12-19] MEDS: METHADONE 80 MG, METHADONE 30 MG, METHADONE 5 MG PO SCH (05:56)
[2018-12-19] MEDS: PANTOPRAZOLE 40 MG TABLET (FP) PO SCH (10:22)
[2018-12-19] MEDS: NICOTINE 14 MG/24 HOURS TOPICAL PATCH TD SCH (10:22)
[2018-12-19] MEDS: PRENATAL VITAMINS W/ FOLIC ACID TABLET (FP) PO SCH (10:22)
[2018-12-19] MEDS: MELATONIN 5 MG TABLETS PO PRN (21:27)
[2018-12-20] MEDS ORDERED: METHADONE 80 MG, METHADONE 30 MG, METHADONE 5 MG PO SCH (06:00)
[2018-12-20] MEDS ORDERED: METHADONE HCL 5 MG TABLET ONE (06:02)
[2018-12-20] MEDS ORDERED: METHADONE HCL 10 MG TABLET ONE (06:03)
[2018-12-20] MEDS ORDERED: METHADONE HCL 40 MG DISPERSABLE TABLET ONE (06:03)
[2018-12-20] MEDS: THIAMINE HCL 100 MG TABLET (FP) PO SCH (06:49)
[2018-12-20 07:05] VITALS: BP 109/67; PULSE 66; TEMP 97.4
[2018-12-20] MEDS: PRENATAL VITAMINS W/ FOLIC ACID TABLET (FP) PO SCH (09:43)
[2018-12-20] MEDS: PANTOPRAZOLE 40 MG TABLET (FP) PO SCH (09:43)
[2018-12-20] MEDS: NICOTINE 14 MG/24 HOURS TOPICAL PATCH TD SCH (09:43)
--- NOTE | 2018-12-20 10:11 | DS ---
[facility] Rehab Discharge Summary - [facility] Rehab Discharge Summary Admission Date: 12/07/18 Discharge Date: 12/20/18 - History Present History: Alcohol dependence, MMTP, Sedative dependence Pertinent Past History: 38 yo with no medical problems, in a methadone program in [place], referred here for detox on 12/02/18. Pt's drug of choice is cocaine. Also uses occ benzo and heroin. [place] [facility] [place] no PCP- but pt states will get one now as he has medicaid. Pt will continue with his MAT methadone and will consider AA type groups for his polysubstance use. Meds if needed were sent yesterday - Discharge Physical Exam Vital Signs: Vital Signs Temperature 97.4 F L 12/20/18 07:04 Pulse Rate 66 12/20/18 07:04 Respiratory Rate 18 12/20/18 07:04 Blood Pressure 109/67 12/20/18 07:04 O2 Sat by Pulse Oximetry (%) Pertinent Admission Physical Exam Findings: alert and oriented ambulatory no complaints, anxious to get to work - Medication Discharge Medications: Ambulatory Orders Methadone [Dolophine -] 115 mg PO DAILY 12/07/18 - Medication-Assisted Treatment (MAT) Medication-Assisted Treatment (MAT): Yes - Discharge Instructions Diet, activity, other medical instructions: Diet: regular diet Activity: works as account receivable clerk, continue Other medical instructions: needs a PCP for f/u of urinary complaints and general medical health - Diagnosis (1) Alcohol use disorder Current Visit: No Status: Acute (2) Cocaine use disorder Current Visit: No Status: Acute (3) Methadone maintenance therapy patient Current Visit: No Status: Acute (4) Opioid use disorder Current Visit: No Status: Acute (5) Tobacco dependence Current Visit: No Status: Acute - AMA Did Patient Leave Against Medical Advice: No
== END 2018-12-20 09:55 | disposition home or self-care (01) | DRG 772 ==
LOC: YASAS 13:26 → Y5N 13:27
PROVIDERS: ADMIT Neuromusculoskeletal Medicine & OMM; ATTEND Neuromusculoskeletal Medicine & OMM
PROC: HZ42ZZZ Group Counseling for Substance Abuse Treatment, Cognitive-Behavioral (ICD-10-PCS; principal; 2018-12-07)
DX: F10.20 Alcohol dependence, uncomplicated (principal); F11.20 Opioid dependence, uncomplicated; F14.20 Cocaine dependence, uncomplicated; F17.210 Nicotine dependence, cigarettes, uncomplicated; K21.9 Gastro-esophageal reflux disease without esophagitis; R35.0 Frequency of micturition
CPT/HCPCS: 81003; Q0162

== ENCOUNTER 2020-08-14 10:47 | Inpatient (IN) | payer OTHER ==
[2020-08-14 12:37] VITALS: BMI 19.2
[2020-08-14] MEDS ORDERED: BISMUTH SUBSALICYLATE 524 MG/30 ML UD PO PRN (13:18)
[2020-08-14] MEDS ORDERED: MAGNESIUM HYDROX 2400MG/30ML ORAL SUSPENSION 30 ML CUP PO PRN (13:18)
[2020-08-14] MEDS ORDERED: MAG HYDROX/AL HYDROX/SIMETH 30 ML UNIT-DOSE CUP PO PRN (13:18)
[2020-08-14] MEDS ORDERED: ONDANSETRON *ODT* 4 MG TABLET SL PRN (13:18)
[2020-08-14] MEDS ORDERED: NICOTINE POLACRILEX 2 MG GUM BUC PRN (13:18)
[2020-08-14] MEDS ORDERED: MENTHOL/PHENOL 1 EACH UD MM PRN (13:18)
[2020-08-14] MEDS ORDERED: MAGNESIUM CITRATE 300 ML BOTTLE PO PRN (13:18)
[2020-08-14] MEDS ORDERED: ACETAMINOPHEN 325 MG TABLET (FP) PO PRN ×2 (13:18)
[2020-08-14] MEDS ORDERED: IBUPROFEN 400 MG TABLET (FP) PO PRN (13:18)
[2020-08-14] MEDS: diazePAM 5 MG TABLET PO PRN (14:56)
[2020-08-14] MEDS: hydrOXYzine PAMOATE 25 MG CAPSULE (FP) PO SCH ×3 (14:57→22:12)
[2020-08-14] MEDS: NICOTINE 21 MG/24 HOURS TOPICAL PATCH TD SCH (14:58)
[2020-08-14] MEDS: PRENATAL VITAMINS W/ FOLIC ACID TABLET (FP) PO SCH (14:58)
[2020-08-14 17:12] LABS: HEMATOCRIT 40.6 % (35.4-49); MCH 31.4 pg (25.7-33.7); MCHC 34.3 g/dl (32.0-35.9); MEAN CELL VOLUME 91.4 fl (80-96); MEAN PLT VOLUME 9.4 fl (7.5-11.1); PLATELET COUNT 246 K/MM3 (134-434); RBC 4.45 M/mm3 (4.00-5.60); RDW 12.1 % (11.9-15.9); WHITE BLOOD COUNT 8.3 K/mm3 (4.0-10.0)
[2020-08-14 17:31] LABS: ALBUMIN 4.2 g/dl (3.4-5.0); BLOOD UREA NITROGEN 11.4 mg/dL (7-18)
[2020-08-14 17:34] LABS: CREATININE 0.9 mg/dL (0.55-1.3)
[2020-08-14 17:35] LABS: BILIRUBIN,TOTAL 0.2 mg/dL (0.2-1)
[2020-08-14 17:36] LABS: TOT PROT 7.8 g/dl (6.4-8.2)
[2020-08-14] MEDS: diazePAM 5 MG TABLET PO SCH ×2 (18:18→22:12)
[2020-08-14] MEDS: THIAMINE HCL 100 MG TABLET (FP) PO SCH (22:12)
[2020-08-14] MEDS: MELATONIN 5 MG TABLETS PO SCH (22:13)
[2020-08-15] MEDS ORDERED: METHADONE HCL 10 MG TABLET ONE (04:41)
[2020-08-15] MEDS ORDERED: METHADONE HCL 40 MG DISPERSABLE TABLET ONE (04:41)
[2020-08-15] MEDS ORDERED: METHADONE HCL 5 MG TABLET ONE (04:41)
[2020-08-15] MEDS: diazePAM 5 MG TABLET PO SCH ×4 (05:33→22:09)
[2020-08-15] MEDS: METHADONE 80 MG, METHADONE 30 MG, METHADONE 5 MG PO SCH (05:34)
[2020-08-15] MEDS: hydrOXYzine PAMOATE 25 MG CAPSULE (FP) PO SCH ×5 (05:34→22:09)
[2020-08-15] MEDS ORDERED: METHADONE HCL 40 MG DISPERSABLE TABLET PO SCH (10:00)
[2020-08-15] MEDS: PRENATAL VITAMINS W/ FOLIC ACID TABLET (FP) PO SCH (10:08)
[2020-08-15] MEDS: NICOTINE 21 MG/24 HOURS TOPICAL PATCH TD SCH (10:09)
[2020-08-15] MEDS: THIAMINE HCL 100 MG TABLET (FP) PO SCH (22:09)
[2020-08-15] MEDS: MELATONIN 5 MG TABLETS PO SCH (22:10)
[2020-08-16] MEDS ORDERED: METHADONE HCL 10 MG TABLET ONE (05:10)
[2020-08-16] MEDS ORDERED: METHADONE HCL 40 MG DISPERSABLE TABLET ONE (05:10)
[2020-08-16] MEDS ORDERED: METHADONE HCL 5 MG TABLET ONE (05:11)
[2020-08-16] MEDS: diazePAM 5 MG TABLET PO SCH ×3 (05:36→22:08)
[2020-08-16] MEDS: hydrOXYzine PAMOATE 25 MG CAPSULE (FP) PO SCH ×2 (05:36→10:14)
[2020-08-16] MEDS: METHADONE 80 MG, METHADONE 30 MG, METHADONE 5 MG PO SCH (05:37)
[2020-08-16] MEDS: PRENATAL VITAMINS W/ FOLIC ACID TABLET (FP) PO SCH (10:13)
[2020-08-16] MEDS: diazePAM 5 MG TABLET PO PRN (10:13)
[2020-08-16] MEDS: NICOTINE 21 MG/24 HOURS TOPICAL PATCH TD SCH (10:14)
[2020-08-16] MEDS ORDERED: hydrOXYzine PAMOATE 25 MG CAPSULE (FP) PO PRN (11:42)
[2020-08-16] MEDS: METHOCARBAMOL 500 MG TABLET PO PRN (17:41)
[2020-08-16] MEDS: THIAMINE HCL 100 MG TABLET (FP) PO SCH (22:08)
[2020-08-16] MEDS: MELATONIN 5 MG TABLETS PO SCH (22:08)
[2020-08-17] MEDS ORDERED: METHADONE HCL 40 MG DISPERSABLE TABLET ONE (04:55)
[2020-08-17] MEDS ORDERED: METHADONE HCL 10 MG TABLET ONE (04:55)
[2020-08-17] MEDS ORDERED: METHADONE HCL 5 MG TABLET ONE (04:55)
[2020-08-17] MEDS: METHADONE 80 MG, METHADONE 30 MG, METHADONE 5 MG PO SCH (05:22)
[2020-08-17] MEDS: diazePAM 5 MG TABLET PO SCH ×2 (05:22→18:16)
[2020-08-17 10:12] LABS: SARS-CoV-2 NAA Not Detected (Not Detected)
[2020-08-17] MEDS: NICOTINE 21 MG/24 HOURS TOPICAL PATCH TD SCH (10:44)
[2020-08-17] MEDS: PRENATAL VITAMINS W/ FOLIC ACID TABLET (FP) PO SCH (10:45)
[2020-08-17] MEDS: diazePAM 5 MG TABLET PO PRN (10:45)
[2020-08-17 18:19] VITALS: TEMP 97.3
[2020-08-17] MEDS: METHOCARBAMOL 500 MG TABLET PO PRN (19:12)
[2020-08-17] MEDS: MELATONIN 5 MG TABLETS PO SCH (23:34)
[2020-08-17] MEDS: THIAMINE HCL 100 MG TABLET (FP) PO SCH (23:35)
[2020-08-18] MEDS ORDERED: METHADONE HCL 5 MG TABLET ONE (04:33)
[2020-08-18] MEDS ORDERED: METHADONE HCL 40 MG DISPERSABLE TABLET ONE (04:33)
[2020-08-18] MEDS ORDERED: METHADONE HCL 10 MG TABLET ONE (04:33)
[2020-08-18] MEDS: METHADONE 80 MG, METHADONE 30 MG, METHADONE 5 MG PO SCH (05:31)
[2020-08-18] MEDS ORDERED: diazePAM 5 MG TABLET PO ONE (06:00)
[2020-08-18 06:15] VITALS: BP 95/69; PULSE 70
[2020-08-18] MEDS: METHOCARBAMOL 500 MG TABLET PO PRN (09:29)
[2020-08-18] MEDS: NICOTINE 21 MG/24 HOURS TOPICAL PATCH TD SCH (11:01)
[2020-08-18] MEDS: PRENATAL VITAMINS W/ FOLIC ACID TABLET (FP) PO SCH (11:01)
== END 2020-08-18 12:15 | disposition other institution (70) | DRG 773 ==
LOC: YASAS 10:47 → Y3N 13:00
PROVIDERS: ADMIT Allergy & Immunology; ATTEND Allergy & Immunology
PROC: HZ2ZZZZ Detoxification Services for Substance Abuse Treatment (ICD-10-PCS; principal; 2020-08-14)
DX: F13.230 Sedative, hypnotic or anxiolytic dependence with withdrawal, uncomplicated (principal); F11.20 Opioid dependence, uncomplicated; F14.10 Cocaine abuse, uncomplicated; F17.210 Nicotine dependence, cigarettes, uncomplicated; F32.9 Major depressive disorder, single episode, unspecified; B18.2 Chronic viral hepatitis C; Z91.5 Personal history of self-harm
CPT/HCPCS: 36415; 80053; 85027; 86780; C9803; Q0162; U0003; U0005

== ENCOUNTER 2020-08-18 10:51 | Inpatient (IN) | payer OTHER ==
[2020-08-18] MEDS ORDERED: IBUPROFEN 400 MG TABLET (FP) PO PRN (13:04)
[2020-08-18] MEDS ORDERED: guaiFENesin 200 MG/10 ML 10 ML UNIT-DOSE CUPS PO PRN (13:04)
[2020-08-18] MEDS ORDERED: MENTHOL/PHENOL 1 EACH UD MM PRN (13:04)
[2020-08-18] MEDS ORDERED: P-EPHED 60MG/TRIPROLIDI 2.5MG TABLET PO PRN (13:04)
[2020-08-18] MEDS ORDERED: MAGNESIUM HYDROX 2400MG/30ML ORAL SUSPENSION 30 ML CUP PO PRN (13:04)
[2020-08-18] MEDS ORDERED: MAG HYDROX/AL HYDROX/SIMETH 30 ML UNIT-DOSE CUP PO PRN (13:04)
[2020-08-18] MEDS ORDERED: ACETAMINOPHEN 325 MG TABLET (FP) PO PRN (13:04)
[2020-08-18] MEDS ORDERED: MAGNESIUM CITRATE 300 ML BOTTLE PO PRN (13:04)
[2020-08-18] MEDS ORDERED: LOPERAMIDE HCL 2 MG CAPSULE PO PRN (13:04)
[2020-08-18] MEDS ORDERED: NICOTINE POLACRILEX 2 MG GUM BUC PRN (13:04)
[2020-08-18] MEDS ORDERED: METHADONE 80 MG, METHADONE 30 MG, METHADONE 5 MG PO SCH (13:15)
[2020-08-18] MEDS: hydrOXYzine PAMOATE 25 MG CAPSULE (FP) PO PRN ×2 (14:14→21:23)
[2020-08-18] MEDS: METHOCARBAMOL 500 MG TABLET PO PRN ×2 (14:14→20:15)
[2020-08-18] MEDS: THIAMINE HCL 100 MG TABLET (FP) PO SCH (21:22)
[2020-08-18] MEDS: MELATONIN 5 MG TABLETS PO SCH (21:24)
[2020-08-19] MEDS ORDERED: METHADONE HCL 10 MG TABLET PO SCH (06:00)
[2020-08-19] MEDS ORDERED: METHADONE HCL 5 MG TABLET ONE (06:09)
[2020-08-19] MEDS ORDERED: METHADONE HCL 40 MG DISPERSABLE TABLET ONE (06:10)
[2020-08-19] MEDS ORDERED: METHADONE HCL 10 MG TABLET ONE (06:10)
[2020-08-19] MEDS: METHADONE 80 MG, METHADONE 30 MG, METHADONE 5 MG PO SCH (06:11)
[2020-08-19] MEDS: PRENATAL VITAMINS W/ FOLIC ACID TABLET (FP) PO SCH (09:10)
[2020-08-19] MEDS: METHOCARBAMOL 500 MG TABLET PO PRN ×2 (09:11→21:32)
[2020-08-19] MEDS: THIAMINE HCL 100 MG TABLET (FP) PO SCH (21:32)
[2020-08-19] MEDS: MELATONIN 5 MG TABLETS PO SCH (21:32)
[2020-08-20] MEDS ORDERED: METHADONE HCL 5 MG TABLET ONE (02:54)
[2020-08-20] MEDS ORDERED: METHADONE HCL 10 MG TABLET ONE (02:55)
[2020-08-20] MEDS ORDERED: METHADONE HCL 40 MG DISPERSABLE TABLET ONE (02:55)
[2020-08-20] MEDS: METHADONE 80 MG, METHADONE 30 MG, METHADONE 5 MG PO SCH (06:13)
[2020-08-20] MEDS: METHOCARBAMOL 500 MG TABLET PO PRN ×2 (08:55→21:15)
[2020-08-20] MEDS: PRENATAL VITAMINS W/ FOLIC ACID TABLET (FP) PO SCH (09:27)
[2020-08-20] MEDS: hydrOXYzine PAMOATE 25 MG CAPSULE (FP) PO PRN (13:03)
[2020-08-20 17:50] LABS: URINE APPEARANCE CLEAR; URINE BILIRUBIN NEGATIVE (NEGATIVE); URINE COLOR YELLOW; URINE GLUCOSE (UA) NEGATIVE (NEGATIVE); URINE KETONE NEGATIVE (NEGATIVE); URINE LEUK ESTERASE NEGATIVE (NEGATIVE); URINE NITRITE NEGATIVE (NEGATIVE); URINE PROTEIN NEGATIVE (NEGATIVE); URINE UROBILINOGEN 0.2 mg/dL (0.2-1.0)
[2020-08-20] MEDS: MELATONIN 5 MG TABLETS PO SCH (21:15)
[2020-08-20] MEDS: ARIPiprazole 5 MG TABLET PO SCH (21:15)
[2020-08-20] MEDS: THIAMINE HCL 100 MG TABLET (FP) PO SCH (21:15)
[2020-08-21] MEDS ORDERED: METHADONE HCL 5 MG TABLET ONE (02:10)
[2020-08-21] MEDS ORDERED: METHADONE HCL 10 MG TABLET ONE (02:10)
[2020-08-21] MEDS ORDERED: METHADONE HCL 40 MG DISPERSABLE TABLET ONE (02:11)
[2020-08-21] MEDS: METHADONE 80 MG, METHADONE 30 MG, METHADONE 5 MG PO SCH (06:03)
[2020-08-21] MEDS: PRENATAL VITAMINS W/ FOLIC ACID TABLET (FP) PO SCH (09:31)
[2020-08-21] MEDS: hydrOXYzine PAMOATE 25 MG CAPSULE (FP) PO PRN (09:32)
[2020-08-21] MEDS: METHOCARBAMOL 500 MG TABLET PO PRN ×2 (12:23→21:24)
[2020-08-21] MEDS: THIAMINE HCL 100 MG TABLET (FP) PO SCH (21:22)
[2020-08-21] MEDS: MELATONIN 5 MG TABLETS PO SCH (21:22)
[2020-08-21] MEDS: ARIPiprazole 5 MG TABLET PO SCH (21:22)
[2020-08-22] MEDS ORDERED: METHADONE HCL 5 MG TABLET ONE (03:10)
[2020-08-22] MEDS ORDERED: METHADONE HCL 10 MG TABLET ONE (03:11)
[2020-08-22] MEDS ORDERED: METHADONE HCL 40 MG DISPERSABLE TABLET ONE (03:11)
[2020-08-22] MEDS: METHADONE 80 MG, METHADONE 30 MG, METHADONE 5 MG PO SCH (06:08)
[2020-08-22 06:09] LABS: SARS-CoV-2 NAA Not Detected (Not Detected)
[2020-08-22] MEDS: PRENATAL VITAMINS W/ FOLIC ACID TABLET (FP) PO SCH (09:44)
[2020-08-22] MEDS: hydrOXYzine PAMOATE 25 MG CAPSULE (FP) PO PRN (09:44)
[2020-08-22] MEDS: METHOCARBAMOL 500 MG TABLET PO PRN (12:49)
[2020-08-22] MEDS: ARIPiprazole 5 MG TABLET PO SCH (21:01)
[2020-08-22] MEDS: MELATONIN 5 MG TABLETS PO SCH (21:01)
[2020-08-22] MEDS: THIAMINE HCL 100 MG TABLET (FP) PO SCH (21:01)
[2020-08-23] MEDS ORDERED: METHADONE HCL 5 MG TABLET ONE (05:28)
[2020-08-23] MEDS ORDERED: METHADONE HCL 10 MG TABLET ONE (05:29)
[2020-08-23] MEDS ORDERED: METHADONE HCL 40 MG DISPERSABLE TABLET ONE (05:29)
[2020-08-23] MEDS: METHADONE 80 MG, METHADONE 30 MG, METHADONE 5 MG PO SCH (06:03)
[2020-08-23] MEDS: PRENATAL VITAMINS W/ FOLIC ACID TABLET (FP) PO SCH (09:13)
[2020-08-23] MEDS: METHOCARBAMOL 500 MG TABLET PO PRN (11:30)
[2020-08-23] MEDS: hydrOXYzine PAMOATE 25 MG CAPSULE (FP) PO PRN ×2 (12:53→21:19)
[2020-08-23] MEDS: ARIPiprazole 5 MG TABLET PO SCH (21:19)
[2020-08-23] MEDS: MELATONIN 5 MG TABLETS PO SCH (21:19)
[2020-08-23] MEDS: THIAMINE HCL 100 MG TABLET (FP) PO SCH (21:19)
[2020-08-24] MEDS: METHOCARBAMOL 500 MG TABLET PO PRN ×3 (00:26→22:02)
[2020-08-24] MEDS ORDERED: METHADONE HCL 5 MG TABLET ONE (02:31)
[2020-08-24] MEDS ORDERED: METHADONE HCL 10 MG TABLET ONE (02:31)
[2020-08-24] MEDS ORDERED: METHADONE HCL 40 MG DISPERSABLE TABLET ONE (02:31)
[2020-08-24] MEDS: METHADONE 80 MG, METHADONE 30 MG, METHADONE 5 MG PO SCH (06:06)
[2020-08-24] MEDS: PRENATAL VITAMINS W/ FOLIC ACID TABLET (FP) PO SCH (09:37)
[2020-08-24] MEDS: hydrOXYzine PAMOATE 25 MG CAPSULE (FP) PO PRN ×2 (09:37→21:03)
[2020-08-24] MEDS: THIAMINE HCL 100 MG TABLET (FP) PO SCH (21:02)
[2020-08-24] MEDS: ARIPiprazole 5 MG TABLET PO SCH (21:02)
[2020-08-24] MEDS: MELATONIN 5 MG TABLETS PO SCH (21:02)
[2020-08-25] MEDS ORDERED: METHADONE HCL 5 MG TABLET ONE (03:19)
[2020-08-25] MEDS ORDERED: METHADONE HCL 40 MG DISPERSABLE TABLET ONE (03:19)
[2020-08-25] MEDS ORDERED: METHADONE HCL 10 MG TABLET ONE (03:19)
[2020-08-25] MEDS: METHADONE 80 MG, METHADONE 30 MG, METHADONE 5 MG PO SCH (06:03)
[2020-08-25 06:48] VITALS: BP 127/80; PULSE 78; TEMP 97.1
[2020-08-25] MEDS: hydrOXYzine PAMOATE 25 MG CAPSULE (FP) PO PRN (08:14)
[2020-08-26] MEDS ORDERED: METHADONE 80 MG, METHADONE 30 MG, METHADONE 5 MG PO SCH (06:00)
== END 2020-08-25 09:02 | disposition home or self-care (01) | DRG 772 ==
LOC: YASAS 10:51 → Y3E 10:52
PROVIDERS: ADMIT Allergy & Immunology; ATTEND Allergy & Immunology
PROC: HZ42ZZZ Group Counseling for Substance Abuse Treatment, Cognitive-Behavioral (ICD-10-PCS; principal; 2020-08-18)
DX: F13.20 Sedative, hypnotic or anxiolytic dependence, uncomplicated (principal); F11.20 Opioid dependence, uncomplicated; F10.10 Alcohol abuse, uncomplicated; F14.10 Cocaine abuse, uncomplicated; F32.9 Major depressive disorder, single episode, unspecified; B18.2 Chronic viral hepatitis C; M25.562 Pain in left knee; V89.2XXS Person injured in unspecified motor-vehicle accident, traffic, sequela
CPT/HCPCS: 81003; 87086; C9803; U0003; U0005